=== PATIENT | male | born 1940 | race Caucasian/White ===

== ENCOUNTER → 2017-10-21 | Outpatient (CLI) | payer MEDICARE, OTHER ==
[~2017-10-21] MED LIST: AMIODARONE HCL200 MG PO; CARVEDILOL6.25 MG PO; LASIX20 MG PO; LISINOPRIL2.5 MG PO; NORCO 10-325 T1 EACH PO; PANTOPRAZOLE SO40 MG PO; POTASSIUM CHLO20 ME1 PO; SPIRONOLACTONE25 MG PO; VALIUM10 MG PO; WARFARIN SODIUM3 MG PO
--- NOTE | 2017-10-21 11:22 | Diagnostic Imaging Report ---
PROCEDURE:CHEST 2 VIEWS TECHNIQUE:PA and lateral chest INDICATION:Dyspnea; congestion COMPARISON:None. FINDINGS: Trace left pleural effusion with left lower lobe airspace opacity. Clear right lung and left upper lobe. Mild cardiomegaly. Mildly prominent central vasculature. 3-lead pacemaker/AICD of the left hemithorax; leads intact. Intact skeleton. CONCLUSION: Left lower pneumonia with adjacent small effusion. Dictated by: Mic Balderas M.D. on 10/21/2017 at 11:31 Electronically approved by: Mic Balderas M.D. on 10/21/2017 at 11:31
== END ==
LOC: RAD 10:41
PROVIDERS: ATTEND Internal Medicine Interventional Cardiology
DX: R06.00 Dyspnea, unspecified (principal); I50.9 Heart failure, unspecified
CPT/HCPCS: 71020

== ENCOUNTER 2017-12-22 09:56 | Inpatient (IN) | payer MEDICARE, OTHER ==
[~2017-12-22] VITALS: Ht 182.9 cm; Wt 77.3 kg
--- OUTSIDE RECORDS SUMMARY | 2017-12-22 10:01 | XMS REPORT ---
Author Author [facility] Address Unknown Phone Unavailable Care Team Providers Care Manager Office Name Role Phone NENA GILL Unavailable Unavailable ETHANBELKIS Mcgill Unavailable Unavailable Problems This patient has no known problems. Allergies, Adverse Reactions, Alerts This patient has no known allergies or adverse reactions. Medications This patient has no known medications. Results Test Description Test Time Test Comments Text Results Atomic Results Result Comments COMPREHENSIVE METABOLIC PANEL 2017-12-17 09:15:00 TOTAL PROTEIN (BEAKER) (test vijl=177) 6.0 gm/dL 6.0-8.3 ALBUMIN (BEAKER) (test gftr=7596) 3.5 g/dL 3.5-5.0 ALKALINE PHOSPHATASE (BEAKER) (test rewh=373) 70 U/L 40-150 BILIRUBIN TOTAL (BEAKER) (test aaud=761) 1.5 mg/dL 0.2-1.2 SODIUM (BEAKER) (test fkek=810) 134 meq/L 136-145 POTASSIUM (BEAKER) (test cmwe=253) 5.2 meq/L 3.5-5.1 CHLORIDE (BEAKER) (test jzcs=626) 101 meq/L 98-107 CO2 (BEAKER) (test lfdg=379) 22 meq/L 22-29 BLOOD UREA NITROGEN (BEAKER) (test iuxj=669) 34 mg/dL 7-21 CREATININE (BEAKER) (test wquu=157) 1.45 mg/dL 0.57-1.25 GLUCOSE RANDOM (BEAKER) (test idez=458) 118 mg/dL 70-105 CALCIUM (BEAKER) (test zgwg=777) 8.9 mg/dL 8.4-10.2 AST (SGOT) (BEAKER) (test ptsn=387) 70 U/L 5-34 ALT (SGPT) (BEAKER) (test prnt=419) 118 U/L 6-55 EGFR (BEAKER) (test cbem=6289) 48 mL/min/1.73 sq m ESTIMATED GFR IS NOT ACCURATE CREATININE CLEARANCE IN PREDICTING GLOMERULAR FILTRATION RATE. ESTIMATED GFR IS NOT APPLICABLE FOR DIALYSIS PATIENTS. [id number] 09:07:00* Test Item Value Reference Range Comments MAGNESIUM (BEAKER) (test phxl=963) 2.0 mg/dL 1.6-2.6 [id number] 08:51:00* Test Item Value Reference Range Comments PARTIAL THROMBOPLASTIN TIME (BEAKER) (test lhpx=925) 46.2 seconds 22.5-36.0 PROTHROMBIN TIME/[id number] 08:50:00* Test Item Value Reference Range Comments PROTIME (BEAKER) (test rogo=137) 39.4 seconds 11.7-14.7 INR (BEAKER) (test atka=075) 4.1 <=5.9 RECOMMENDED COUMADIN/WARFARIN INR THERAPY RANGESSTANDARD DOSE: 2.0 - 3.0 Includes: PROPHYLAXIS for venous thrombosis, systemic embolization; TREATMENT for venous thrombosis and/or pulmonary embolus.HIGH RISK: Target INR is 2.5-3.5 for patients with mechanical heart valves.CBC W/PLT COUNT & AUTO [id number] 08:38:00* Test Item Value Reference Range Comments WHITE BLOOD CELL COUNT (BEAKER) (test hzfi=316) 7.6 K/ L 3.5-10.5 RED BLOOD CELL COUNT (BEAKER) (test fxpm=106) 3.12 M/ L 4.63-6.08 HEMOGLOBIN (BEAKER) (test wcjj=048) 10.4 GM/DL 13.7-17.5 HEMATOCRIT (BEAKER) (test iztk=106) 32.6 % 40.1-51.0 MEAN CORPUSCULAR VOLUME (BEAKER) (test oibb=430) 104.5 fL 79.0-92.2 MEAN CORPUSCULAR HEMOGLOBIN (BEAKER) (test ksva=071) 33.3 pg 25.7-32.2 MEAN CORPUSCULAR HEMOGLOBIN CONC (BEAKER) (test wkor=806) 31.9 GM/DL 32.3- 36.5 RED CELL DISTRIBUTION WIDTH (BEAKER) (test twza=336) 16.4 % 11.6-14.4 PLATELET COUNT (BEAKER) (test fltw=044) 187 K/CU MM 150-450 MEAN PLATELET VOLUME (BEAKER) (test cygs=170) 10.6 fL 9.4-12.4 NUCLEATED RED BLOOD CELLS (BEAKER) (test clkx=018) 0 /100 WBC 0-0 NEUTROPHILS RELATIVE PERCENT (BEAKER) (test gkvh=983) 66 % LYMPHOCYTES RELATIVE PERCENT (BEAKER) (test lvva=875) 22 % MONOCYTES RELATIVE PERCENT (BEAKER) (test ucie=039) 11 % EOSINOPHILS RELATIVE PERCENT (BEAKER) (test bfpr=311) 0 % BASOPHILS RELATIVE PERCENT (BEAKER) (test xnau=831) 0 % NEUTROPHILS ABSOLUTE COUNT (BEAKER) (test zqrv=822) 4.98 K/ L 1.78-5.38 LYMPHOCYTES ABSOLUTE COUNT (BEAKER) (test hoar=789) 1.68 K/ L 1.32-3.57 MONOCYTES ABSOLUTE COUNT (BEAKER) (test kytd=139) 0.86 K/ L 0.30-0.82 EOSINOPHILS ABSOLUTE COUNT (BEAKER) (test phux=527) 0.02 K/ L 0.04-0.54 BASOPHILS ABSOLUTE COUNT (BEAKER) (test cizq=501) 0.02 K/ L 0.01-0.08 IMMATURE GRANULOCYTES-RELATIVE PERCENT (BEAKER) (test zora=8302) 1 % 0-1 CHEST 2 VIEWS [place] [address] Patient Name: RONN GOEMZ MR #: [id number] : 1940 Age/Sex: 76/M Req #: [id number] Adm Physician: Ordered by: BELKIS LONG MD Report #: [id number] Location: [facility] Room/Bed: Procedure: [id number] DX/ CHEST 2 VIEWS Exam Date: 10/21/17 Exam Time: 1100 REPORT STATUS: Signed PROCEDURE: CHEST 2 VIEWS TECHNIQUE: PA and lateral chest INDICATION: Dyspnea; congestion COMPARISON: None. FINDINGS: Trace left pleural effusion with left lower lobe airspace opacity. Clear right lung and left upper lobe. Mild cardiomegaly. Mildly prominent central vasculature. 3-lead pacemaker/AICD of the left hemithorax; leads intact. Intact skeleton. CONCLUSION: Left lower pneumonia with adjacent small effusion. Dictated by: Jcarlos Balderas M.D. on 10/21/2017 at 11:31 Electronically approved by: Jcarlos Balderas M.D. on 10/21/2017 at 11:31 Dictated By: JCARLOS BALDERAS MD [id number] Transcribed By: JUDAH on 10/21/17 1131 COPY TO: BELKIS LONG MD
--- OUTSIDE RECORDS SUMMARY | 2017-12-22 10:01 | XMS REPORT | Clinical Summary ---
Author Author [facility] Address Unknown Phone Unavailable Care Team Providers Care [employer] Crewmember Name Role Phone PCP Unavailable Allergies No Known Allergies Current Medications Prescription Sig. Disp. Refills Start End Date Status Date warfarin (COUMADIN) 5 MG Take 5 mg by mouth daily. Active tablet carvedilol (COREG) 25 MG Take 25 mg by mouth 2 Active tablet (two) times daily with breakfast and dinner. potassium chloride SA Take 20 mEq by mouth Active (K-DUR,KLOR-CON) 20 MEQ daily. tablet lisinopril Take 2.5 mg by mouth Active (PRINIVIL,ZESTRIL) 2.5 MG daily. tablet furosemide (LASIX) 20 MG Take 20 mg by mouth Active tablet daily. spironolactone Take 25 mg by mouth 2 Active (ALDACTONE) 25 MG tablet (two) times daily. digoxin (LANOXIN) 0.125 Take 125 mcg by mouth 12/17/19 Discontin MG tablet daily. 18 ued Active Problems Problem Noted Date Dilated cardiomyopathy ([facility]) 12/17/2017 Encounters Date Type Specialty Care Team Description 12/17/2017 [facility] Dragan Al, Dilated cardiomyopathy Encounter ([facility]) 12/17/2017 Anesthesia Gabino Mackey MD Event 12/17/2017 Orders Only General Internal Medicine 12/17/2017 Procedure Pass 12/17/2017 Surgery Dragan Al, EPS & ABLATION MD after 12/21/2016 Social History Tobacco Use Types Packs/Day Years Used Date Heavy Tobacco Smoker Smokeless Tobacco: Never Used Comments: Smokes cigars currently Alcohol Use Drinks/Week oz/Week Comments Yes 7 Shots of 4.2 Drinks [place] liquor Sex Assigned at Date Recorded Not on file Last Filed Vital Signs Vital Sign Reading Time Taken Blood Pressure 131/63 12/17/2017 8:55 PM ELECTRICAL SYSTEM SPECIALIST Pulse 91 12/17/2017 8:55 PM ELECTRICAL SYSTEM SPECIALIST Temperature 36.2 C (97.2 F) 12/17/2017 7:42 AM ELECTRICAL SYSTEM SPECIALIST Respiratory Rate 22 12/17/2017 8:55 PM ELECTRICAL SYSTEM SPECIALIST Oxygen Saturation 94% 12/17/2017 6:04 PM ELECTRICAL SYSTEM SPECIALIST Inhaled Oxygen - - Concentration Weight 89 kg (196 lb 3.2 oz) 12/17/2017 7:42 AM ELECTRICAL SYSTEM SPECIALIST Height 185.4 cm (6' 1") 12/17/2017 7:42 AM ELECTRICAL SYSTEM SPECIALIST Body Mass Index 25.89 12/17/2017 7:42 AM ELECTRICAL SYSTEM SPECIALIST Plan of Treatment Not on file Procedures Procedure Name Priority Date/Time Associated Diagnosis Comments EPS & ABLATION 12/17/2017 I42.0 3:00 PM ELECTRICAL SYSTEM SPECIALIST Case Notes (3) CASE POP6 AB NODE NOTATION Special Needs AB NODE NOTATION after 12/21/2016 Results * CARDIAC CATH REPORT - SCAN (12/21/2017 9:20 PM) * ARRYTHMIA IMPLANT REPORT - SCAN (12/21/2017 11:00 AM) * Electrocardiogram, 12-lead (12/17/2017 9:01 AM) Specimen Performing Laboratory [employer] Narrative Ventricular Rate 139 BPM Atrial Rate 131 BPM QRS Duration 148 ms Q-T Interval 332 ms QTC Calculation(Bazett) 505 ms R [place] 24 degrees T [place] 198 degrees Atrial fibrillation with rapid ventricular response with premature ventricular or aberrantly conducted complexes Left bundle branch block Abnormal ECG No previous ECGs available Confirmed by MD KIMBERLEY, IHAB ([id number]) on 12/17/2017 6:32:20 PM Procedure Note Interface, External Ris In - 12/17/2017 6:32 PM ELECTRICAL SYSTEM SPECIALIST Ventricular Rate 139 BPM Atrial Rate 131 BPM QRS Duration 148 ms Q-T Interval 332 ms QTC Calculation(Bazett) 505 ms R [place] 24 degrees T [place] 198 degrees Atrial fibrillation with rapid ventricular response with premature ventricular or aberrantly conducted complexes Left bundle branch block Abnormal ECG No previous ECGs available Confirmed by MD KIMBERLEY, IHAB ([id number]) on 12/17/2017 6:32:20 PM * CBC with platelet count + automated diff (12/17/2017 8:32 AM) Component Value Ref Range WBC 7.6 3.5 - 10.5 K/ L RBC 3.12 (L) 4.63 - 6.08 M/ L Hemoglobin 10.4 (L) 13.7 - 17.5 GM/DL Hematocrit 32.6 (L) 40.1 - 51.0 % MCV 104.5 (H) 79.0 - 92.2 fL MCH 33.3 (H) 25.7 - 32.2 pg MCHC 31.9 (L) 32.3 - 36.5 GM/DL RDW 16.4 (H) 11.6 - 14.4 % Platelets 187 150 - 450 K/CU MM MPV 10.6 9.4 - 12.4 fL nRBC 0 0 - 0 /100 WBC % Neutros 66 % % Lymphs 22 % % Monos 11 % % Eos 0 % % Baso 0 % # Neutros 4.98 1.78 - 5.38 K/ L # Lymphs 1.68 1.32 - 3.57 K/ L # Monos 0.86 (H) 0.30 - 0.82 K/ L # Eos 0.02 (L) 0.04 - 0.54 K/ L # Baso 0.02 0.01 - 0.08 K/ L Immature 1 0 - 1 % Granulocytes-Relative Specimen Performing Laboratory Blood - Line, [address] [address] * aPTT (12/17/2017 8:32 AM) Component Value Ref Range PTT 46.2 (H) 22.5 - 36.0 seconds Specimen Performing Laboratory Blood - Line, [address] [address] * Prothrombin time/INR (12/17/2017 8:32 AM) Component Value Ref Range Protime 39.4 (H) 11.7 - 14.7 seconds INR 4.1 <=5.9 Specimen Performing Laboratory Blood - Line, [address] [address] Narrative RECOMMENDED COUMADIN/WARFARIN INR THERAPY RANGES STANDARD DOSE: 2.0 - 3.0 Includes: PROPHYLAXIS for venous thrombosis, systemic embolization; TREATMENT for venous thrombosis and/or pulmonary embolus. HIGH RISK: Target INR is 2.5-3.5 for patients with mechanical heart valves. * CBC with platelet count + automated diff (12/17/2017 8:32 AM) Specimen Performing Laboratory Blood - Line, Venous Narrative The following orders were created for panel order CBC with platelet count + automated diff. Procedure Abnormality Status --------- - ------ CBC with platelet count ...[[id number]]AbnormalFinal result Please view results for these tests on the individual orders. * Magnesium (12/17/2017 8:32 AM) Component Value Ref Range Magnesium 2.0 1.6 - 2.6 mg/dL Specimen Performing Laboratory Blood - Line, Venous [address] [address] * Comprehensive metabolic panel (12/17/2017 8:32 AM) Component Value Ref Range Protein, Total 6.0 6.0 - 8.3 gm/dL Albumin 3.5 3.5 - 5.0 g/dL Alkaline Phosphatase 70 40 - 150 U/L Total Bilirubin 1.5 (H) 0.2 - 1.2 mg/dL Sodium 134 (L) 136 - 145 meq/L Potassium 5.2 (H) 3.5 - 5.1 meq/L Chloride 101 98 - 107 meq/L CO2 22 22 - 29 meq/L BUN 34 (H) 7 - 21 mg/dL Creatinine 1.45 (H) 0.57 - 1.25 mg/dL Glucose 118 (H) 70 - 105 mg/dL Calcium 8.9 8.4 - 10.2 mg/dL AST 70 (H) 5 - 34 U/L ALT 118 (H) 6 - 55 U/L EGFR 48Comment: ESTIMATED GFR IS NOT ACCURATE mL/min/1.73 sq m CREATININE CLEARANCE IN PREDICTING GLOMERULAR FILTRATION RATE. ESTIMATED GFR IS NOT APPLICABLE FOR DIALYSIS PATIENTS. Specimen Performing Laboratory Blood - Line, Venous [address] [address] after 12/21/2016
[2017-12-22] MEDS ORDERED: ASPIRIN 81 MG CHEW TAB PO ONE ×2 (10:30)
[2017-12-22 10:36] LABS: BASOPHILS % 0.2 % (0.0-1.0); HEMATOCRIT 34.1 % (38.2-49.6); HEMOGLOBIN 11.2 g/dL (14.0-18.0); LYMPHOCYTES # (AUTO) 0.8 (1.0-3.2); LYMPHOCYTES % 13.3 % (18.0-39.1); MEAN CORPUSCULAR HEMOGLOBIN 33.6 pg (28-32); MEAN CORPUSCULAR HGB CONC 32.8 g/dL (31-35); MEAN CORPUSCULAR VOLUME 102.4 fL (81-99); MONOCYTES % 16.8 % (4.4-11.3); NEUTROPHILS # (AUTO) 4.3 (2.1-6.9); NEUTROPHILS % 68.9 % (38.7-80.0); PLATELET COUNT 187 x10e3/uL (140-360); RED BLOOD COUNT 3.33 x10e6/uL (4.3-5.7); RED CELL DISTRIBUTION WIDTH 16.3 % (11.7-14.4)
--- NOTE | 2017-12-22 10:40 | Diagnostic Imaging Report ---
PROCEDURE: CHEST SINGLE (PORTABLE) COMPARISON: 10/21/2017. INDICATIONS: SOB, COUGH FINDINGS: The lungs remain well-inflated. Persistent retrocardiac opacity with loss of the left hemidiaphragmatic contour. Trace left pleural effusion. Right hemithorax is comparatively well aerated. Stable cardiomediastinal contour with left subclavian approach implantable cardiac device body and leads. Tortuosity and atherosclerotic calcification of the thoracic aorta. Normal heart size. No acute osseous abnormality. CONCLUSION: Persistent retrocardiac air space opacity dating to 10/21/2017. Differential diagnosis includes pneumonia with slow radiographic resolution, atelectasis or pleural-parenchymal mass lesion. CT scan of the chest with contrast is suggested for further evaluation. Dictated by: Torres Nieto M.D. on 12/22/2017 at 10:40 Electronically approved by: Torres Nieto M.D. on 12/22/2017 at 10:40
[2017-12-22 10:46] LABS: ALANINE AMINOTRANSFERASE 58 IU/L (0-55); ALBUMIN 3.3 g/dL (3.5-5.0); ALKALINE PHOSPHATASE 78 IU/L (40-150); ANION GAP 15.2 mmol/L (8-16); BLOOD UREA NITROGEN 24 mg/dL (7-26); BUN/CREATININE RATIO 21 (6-25); CALCIUM 8.1 mg/dL (8.4-10.2); CARBON DIOXIDE 26 mmol/L (22-29); CHLORIDE 93 mmol/L (98-107); CREATINE KINASE 74 IU/L (30-200); CREATININE, SERUM 1.17 mg/dL (0.72-1.25); EST GLOMERULAR FILTRATION RATE > 60 ML/MIN (60-); GLUCOSE 102 mg/dL (74-118); POTASSIUM 5.2 mmol/L (3.5-5.1); SODIUM 129 mmol/L (136-145)
[2017-12-22 11:10] LABS: INR 1.94; PROTHROMBIN TIME 20.8 seconds (11.9-14.5)
[2017-12-22 11:11] LABS: PARTIAL THROMBOPLASTIN TIME 43.9 seconds (23.8-35.5)
[2017-12-22] MEDS ORDERED: FUROSEMIDE INJ 10 MG/ML 4 ML VIAL IV ONE (12:15)
--- NOTE | 2017-12-22 12:48 | Diagnostic Imaging Report ---
PROCEDURE:CT CHEST WITH CONTRAST COMPARISON:Chest x-ray 12/22/17, CT chest 03/05/16. INDICATIONS:SHORTNESS OF BREATH TECHNIQUE: Axial CT images of the chest were obtained after the intravenous administration of 100 cc of nonionic contrast. Coronal and sagittal reformations were made available for review. RADIATION DOSE: Total DLP: 545.96 mGy*cm Estimated effective dose: (DLP x 0.014 x size factor) mSv FINDINGS: Lymph nodes: No enlarged axillary, supraclavicular lymph nodes. Mediastinal lymph nodes are increased in number. A precarinal lymph node measures 7 x 17 mm and is stable. Lymph nodes in the AP window measure up to 7 x 10 mm and are stable. No enlarged hilar lymph nodes. A right subcarinal lymph node measures 9 x 14 mm. Thyroid/base of neck: Unremarkable. Heart \T\ Mediastinum:Pacemaker battery pack is in the left chest wall. Pacemaker leads terminate in the right atrium, right ventricle, and coronary sinus. The heart is enlarged with moderate coronary artery atherosclerosis. The main pulmonary artery measures 3.37 m in diameter. The descending aorta measures 3.5 cm in diameter. There no filling defects and the great vessels. No pericardial effusion. The esophagus is normal. Lungs: Right lung: Diffusely hyperinflated with mild bronchial wall thickening suggestive of chronic bronchitis. There is a small amount of mucus in the proximal main bronchus. A calcified granuloma in the posterior lobe measures 5 mm. No consolidation. There is a tiny posterior layering pleural effusion. Left lung: Diffusely hyperinflated with mild bronchial wall thickening suggestive of chronic bronchitis. There is mucous in the proximal left main bronchus. There is subsegmental round atelectasis of the lower lobe. No mass or infiltrate in the upper lobe. Posterior pleural effusion measures 5 cm with fluid tracking into the major fissure. In 2016, this pleural effusion measured 4.8 cm. There is mild thickening of the parietal pleura in the posterior chest suggestive of chronicity. Pleura:No pleural-based mass or pneumothorax. Upper abdomen:Visualized portions of the liver and spleen are unremarkable. There is mild thickening of the apex of the right adrenal gland, similar to previous exam. Musculoskeletal:Mild degenerative changes of the spine consistent with age. There is a stable healed fracture deformity of the proximal sternum and stable fracture deformities of the right ninth and left seventh and eighth ribs. There are no acute fractures or focal osseous lesions. CONCLUSION: 1. Small to moderate sized left pleural effusion is likely chronic. There is round atelectasis of the left lower lobe. Right pleural effusion has almost completely resolved. 2. COPD and chronic bronchitis with mucous in the right and left main bronchi. 3. Mildly prominent mediastinal lymph nodes are likely reactive to an infectious/inflammatory process. 4. Cardiomegaly and pacer/fibrillator wires as described above. 5. Mildly prominent main pulmonary artery is suggestive of pulmonary artery hypertension. Dictated by: Ade Chakraborty M.D. on 12/22/2017 at 12:46 Electronically approved by: Ade Chakraborty M.D. on 12/22/2017 at 12:46
--- OUTSIDE RECORDS SUMMARY | 2017-12-22 12:59 | XMS REPORT | Clinical Summary ---
Author Author TON[facility] Address Unknown Phone Unavailable Care Team Providers Care Half Backer Name Role Phone PCP Unavailable Allergies No [...] Active Problems Problem Noted Date Dilated cardiomyopathy ([facility]) 12/17/2017 Encounters Date Type Specialty Care Team Description 12/17/2017 [facility] Dragan Al, Dilated cardiomyopathy Encounter ([facility]) 12/17/2017 Anesthesia Gabino Mackey MD Event 12/17/2017 Orders Only General Internal Medicine 12/17/2017 Procedure Pass 12/17/2017 Surgery Dragan Al, EPS & ABLATION MD after 12/21/2016 Social History Tobacco Use Types Packs/Day Years Used Date Heavy Tobacco Smoker Smokeless Tobacco: Never Used Comments: Smokes cigars currently Alcohol Use Drinks/Week oz/Week Comments Yes 7 Shots of 4.2 Drinks [place] liquor Sex Assigned at Date Recorded Not on file Last Filed Vital Signs Vital Sign Reading Time Taken Blood Pressure 131/63 12/17/2017 8:55 PM OB/GYN PHYSICIAN Pulse 91 12/17/2017 8:55 PM OB/GYN PHYSICIAN Temperature 36.2 C (97.2 F) 12/17/2017 7:42 AM OB/GYN PHYSICIAN Respiratory Rate 22 12/17/2017 8:55 PM OB/GYN PHYSICIAN Oxygen Saturation 94% 12/17/2017 6:04 PM OB/GYN PHYSICIAN Inhaled Oxygen - - Concentration Weight 89 kg (196 lb 3.2 oz) 12/17/2017 7:42 AM OB/GYN PHYSICIAN Height 185.4 cm (6' 1") 12/17/2017 7:42 AM OB/GYN PHYSICIAN Body Mass Index 25.89 12/17/2017 7:42 AM OB/GYN PHYSICIAN Plan of Treatment Not on file Procedures Procedure Name Priority Date/Time Associated Diagnosis Comments EPS & ABLATION 12/17/2017 I42.0 3:00 PM OB/GYN PHYSICIAN Case Notes (3) CASE POP6 AB NODE NOTATION Special Needs AB NODE NOTATION after 12/21/2016 Results * CARDIAC CATH REPORT - SCAN (12/21/2017 9:20 PM) * ARRYTHMIA IMPLANT REPORT - SCAN (12/21/2017 11:00 AM) * Electrocardiogram, 12-lead (12/17/2017 9:01 AM) Specimen Performing Laboratory [employer] Narrative Ventricular Rate 139 BPM Atrial Rate 131 BPM QRS Duration 148 ms Q-T Interval 332 ms QTC Calculation(Bazett) 505 ms R [place] 24 degrees T [place] 198 degrees Atrial fibrillation with rapid ventricular response with premature ventricular or aberrantly conducted complexes Left bundle branch block Abnormal ECG No previous ECGs available Confirmed by MD KIMBERLEY, IHAB ([id number]) on 12/17/2017 6:32:20 PM Procedure Note Interface, External Ris In - 12/17/2017 6:32 PM OB/GYN PHYSICIAN Ventricular Rate 139 BPM Atrial Rate 131 BPM QRS Duration 148 ms Q-T Interval 332 ms QTC Calculation(Bazett) 505 ms R [place] 24 degrees T [place] 198 degrees Atrial fibrillation with rapid ventricular response with premature ventricular or aberrantly conducted complexes Left bundle branch block Abnormal ECG No previous ECGs available Confirmed by MD KIMBERLEY, IHAB ([id number]) on 12/17/2017 6:32:20 PM * CBC with [...] Granulocytes-Relative Specimen Performing Laboratory Blood - Line, [address] [address] * aPTT (12/17/2017 8:32 AM) Component Value Ref Range PTT 46.2 (H) 22.5 - 36.0 seconds Specimen Performing Laboratory Blood - Line, [address] [address] * Prothrombin time/INR (12/17/2017 8:32 AM) Component Value Ref Range Protime 39.4 (H) 11.7 - 14.7 seconds INR 4.1 <=5.9 Specimen Performing Laboratory Blood - Line, [address] [address] Narrative RECOMMENDED COUMADIN/WARFARIN INR THERAPY RANGES STANDARD [...] --------- - ------ CBC with platelet count ...[[id number]]AbnormalFinal result Please view results for these tests on the individual orders. * Magnesium (12/17/2017 8:32 AM) Component Value Ref Range Magnesium 2.0 1.6 - 2.6 mg/dL Specimen Performing Laboratory Blood - Line, Venous [address] [address] * Comprehensive metabolic panel (12/17/2017 8:32 AM) [...] Specimen Performing Laboratory Blood - Line, Venous [address] [address] after 12/21/2016
[2017-12-22] MEDS ORDERED: SODIUM CHLORIDE 452MG TAB PO SCH (13:00)
[2017-12-22 14:12] VITALS: BP 101/57
[2017-12-22 14:17] VITALS: BP 101/57
[2017-12-22 14:18] VITALS: BP 101/57
[2017-12-22] MEDS ORDERED: SODIUM CHLORIDE 0.9% 50ML 50 ML ONE (14:59)
[2017-12-22] MEDS ORDERED: IOPAMIDOL 370 MG/ML 200 ML INFUS..BTL INJ ONE (14:59)
[2017-12-22 16:29] VITALS: BP 94/66
[2017-12-22] MEDS ORDERED: LEVOFLOXACIN 500MG/D5W 100ML 100 ML IV ONE (17:30)
[2017-12-22] MEDS ORDERED: CARVEDILOL 3.125 MG TAB PO SCH (18:00)
[2017-12-22] MEDS ORDERED: LORAZEPAM 1 MG TAB PO PRN (18:30)
[2017-12-22] MEDS ORDERED: DIPHENOXYLATE/ATROPINE TAB PO PRN (18:30)
--- NOTE | 2017-12-22 18:36 | Consultation ---
DATE OF CONSULTATION: December 22, 2017 CARDIOLOGY CONSULTATION INDICATION: Shortness of breath. HISTORY OF PRESENT ILLNESS: Mr. Ryan is a 76-year-old gentleman with a history of excessive alcohol consumption, atrial fibrillation, nonischemic cardiomyopathy, as well as congestive heart failure. He came to my office for persistent shortness of breath and hypotension following an AV node ablation procedure. He was syncopal in the office. He did not have cardiac arrest. His defibrillator did not shock him, however, he was very weak and could not move from the laying down position. Paramedics were called. He was transferred to the emergency room at [facility] where he was diagnosed with congestive heart failure with pulmonary edema on his CT scan and chest x-ray along with infiltrates and large amounts of mucus in his bronchial tubes via CT. PAST MEDICAL HISTORY: As listed above. SOCIAL HISTORY: Patient denies drinking recently, although he has had a long history of excessive alcohol consumption for most of his life. FAMILY HISTORY: Noncontributory. REVIEW OF SYSTEMS: Negative except as dictated in the history of present illness. PHYSICAL EXAMINATION VITALS: Afebrile, heart rate 78, blood pressure 98/70, O2 sat is 94% on 2 L nasal cannula. CARDIOVASCULAR: Regular rhythm. S3 gallop. Systolic murmur. LUNGS: Decreased breath sounds. Crackles and rhonchi bilaterally in both lung cervantes. ABDOMEN: Distended. Free fluid is present. 2+ edema. Electrocardiogram shows BiV paced rhythm. CT scan, chest x-ray, labs were reviewed. Hyponatremia is noted. ASSESSMENT 1. Agejx-nr-dkustpn systolic heart failure. 2. Atrial fibrillation. 3. Excessive alcohol consumption. RECOMMENDATIONS: Aggressive diuresis with intravenous furosemide as well as oral Aldactone, continuation of low-dose beta darleen and lisinopril as tolerated for relative hypotension with acute heart failure. Echocardiogram to evaluate for ejection fraction as well as AICD check will be performed. He does have some evidence of infiltrates with recent history of upper respiratory tract infection and relative hypotension. Coverage for pneumonia will be provided with vancomycin and Levaquin. Overall, prognosis is guarded. I thank Dr. Haile for this consultation. Job#: [id number]
[2017-12-22] MEDS ORDERED: VANCOMYCIN 1GM/NS 250 ML 250 ML IV SCH ×2 (18:45→23:47)
[2017-12-22 18:50] LABS: INR 1.84
[2017-12-22 19:00] VITALS: BP 96/75
[2017-12-22 19:05] LABS: CREATINE KINASE MB 1.9 ng/mL (0-5.0)
--- NOTE | 2017-12-22 19:05 | History and Physical ---
This patient comes in with shortness of breath and orthopnea. HISTORY OF PRESENT ILLNESS: Mr. Ryan is a 76-year-old gentleman with a history of dyspnea which is increased in intensity, and increased to orthopnea. He came with shortness of breath and foot swelling and was diagnosed with congestive heart failure and hyponatremia, and was admitted to the hospital. PAST MEDICAL HISTORY: History of hypertension, history of atrial fibrillation, history of congestive heart failure, history of myocardial infarction, history of recent ablation by Dr. Al and history of GI bleed in the past, history of alcoholism, history of chronic fatigue syndrome, history of alcoholic dementia. PAST SURGICAL HISTORY: Recent surgery include a pacemaker in 2016 and recent cardiac ablations. HOME MEDICATIONS: Vitamin B 100 mg, pantoprazole, at bedtime, potassium chloride 20 mEq, Aldactone 25 mEq, lisinopril 2.5, furosemide 20, Carvedilol 25, warfarin 5, digoxin 125, Wellbutrin 150. REVIEW OF SYSTEMS: Negative for chest pain. Positive for shortness of breath. Negative for nausea and vomiting, diarrhea, constipation, rectal pain, hematochezia. Positive for orthopnea and PND. Positive for lower extremity swelling and also positive for anxiety. SOCIAL HISTORY: No ETOH at this time, but history of ETOH and history of smoking too. PHYSICAL EXAMINATION GENERAL: The patient is alert and oriented x3, slightly tachypneic, breathing about 25-30 respirations per minute using accessory muscles for respiration, otherwise alert. HEENT: Normocephalic, atraumatic. Pupils react to light and accommodation. There is no icterus present. NECK: No JVD present. No meningeal signs. No thyromegaly or carotid bruits. CVS: S1 and S2. Regular rate and rhythm. RESPIRATORY: Positive for crackles in the lower base. ABDOMEN: Soft and nontender, nondistended. EXTREMITIES: Trace edema right now. SKIN: Warm. BACK: Positive for tenderness. NEUROLOGIC: Alert and oriented x3. Does have some loss of short term memory. LABORATORY DATA: Initial white count is 6.18, hemoglobin 11.2, hematocrit 34.1, platelet count 187,000. Chemistry: Sodium 129, potassium 5.2, CO2 of 26, BUN 24 and creatinine 1.07, calcium 8.1. ALT 58. BNP was 1596. Albumin 3.3. ASSESSMENT: Congestive heart failure. PLAN: 1. The last echo that was seen was back in 2016 with ejection fraction of 35% and since then the patient has had ICD placement and also ablation. 2. Will go ahead and repeat an echo unless Dr. Nova has already done it. Will take him off his Aldactone and his potassium supplements for hypokalemia. 3. 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 Dr. Nova has been consulted. 4. Repeat a thyroid, TSH and T4 and T3, and also check his PT and INR. Apparently, the patient is still taking warfarin. 5. Further recommendations depending on clinical course. Will continue to monitor the patient and if INR is therapeutic will continue the same if not. 6. Will consult cardiology and further recommendations depending on clinical course. Job#: [id number]
[2017-12-22 19:33] LABS: FREE THYROXINE INDEX 2.7298 (1.4-3.8); THYROID STIMULATING HORMONE 0.589 uIU/mL (0.350-4.940)
[2017-12-22] MEDS ORDERED: SODIUM CHLORIDE 0.9% 250ML 250 ML ONE (20:55)
[2017-12-22] MEDS: FUROSEMIDE INJ 10 MG/ML 4 ML VIAL IV SCH (21:02)
[2017-12-22] MEDS: LEVOFLOXACIN 500MG/D5W 100ML 100 ML IV SCH (21:02)
[2017-12-22 22:42] LABS: ANION GAP 17.1 mmol/L (8-16); BLOOD UREA NITROGEN 24 mg/dL (7-26); BUN/CREATININE RATIO 21 (6-25); CALCIUM 8.7 mg/dL (8.4-10.2); CARBON DIOXIDE 29 mmol/L (22-29); CHLORIDE 88 mmol/L (98-107); CREATININE, SERUM 1.12 mg/dL (0.72-1.25); EST GLOMERULAR FILTRATION RATE > 60 ML/MIN (60-); GLUCOSE 96 mg/dL (74-118); POTASSIUM 4.1 mmol/L (3.5-5.1); SODIUM 130 mmol/L (136-145)
[2017-12-23] VITALS (7 sets, daily range): BP systolic 92–113; BP diastolic 58–96
[2017-12-23] MEDS: IPRATROPIUM BROMIDE 0.02% 2.5 ML NEB NEB SCH (00:10)
[2017-12-23 06:34] LABS: BASOPHILS % 0.3 % (0.0-1.0); HEMATOCRIT 36.9 % (38.2-49.6); HEMOGLOBIN 12.1 g/dL (14.0-18.0); LYMPHOCYTES # (AUTO) 1.2 (1.0-3.2); LYMPHOCYTES % 18.2 % (18.0-39.1); MEAN CORPUSCULAR HEMOGLOBIN 33.3 pg (28-32); MEAN CORPUSCULAR HGB CONC 32.8 g/dL (31-35); MEAN CORPUSCULAR VOLUME 101.7 fL (81-99); MONOCYTES # (AUTO) 1.1 (0.2-0.8); MONOCYTES % 17.5 % (4.4-11.3); NEUTROPHILS # (AUTO) 4.1 (2.1-6.9); NEUTROPHILS % 63.4 % (38.7-80.0); PLATELET COUNT 163 x10e3/uL (140-360); RED BLOOD COUNT 3.63 x10e6/uL (4.3-5.7); RED CELL DISTRIBUTION WIDTH 16.2 % (11.7-14.4)
--- NOTE | 2017-12-23 06:43 | Diagnostic Imaging Report ---
EXAMINATION: CHEST SINGLE (PORTABLE) INDICATION: CHF, dyspnea COMPARISON: 12/22/2017 FINDINGS: TUBES and LINES: The pacemaker is intact. LUNGS: Lungs are not well inflated. There are bibasilar atelectasis. There is perihilar interstital opacities, consistent with interstitial edema. PLEURA: Small left pleural effusion. HEART AND MEDIASTINUM: Cardiac size is moderately enlarged. There are atherosclerotic calcifications within the aorta. BONES AND SOFT TISSUES: No acute osseous lesion. Soft tissues are unremarkable. UPPER ABDOMEN: No free air under the diaphragm. IMPRESSION: Recurrent cardiogenic pulmonary edema, slightly worsening Signed by: Dr. Kishor De La Vega M.D. on 12/23/2017 6:39 AM
[2017-12-23 06:54] LABS: ALANINE AMINOTRANSFERASE 53 IU/L (0-55); ALBUMIN 3.2 g/dL (3.5-5.0); ALBUMIN/GLOBULIN RATIO 0.9 (0.8-2.0); ALKALINE PHOSPHATASE 93 IU/L (40-150); ANION GAP 18.9 mmol/L (8-16); BLOOD UREA NITROGEN 21 mg/dL (7-26); BUN/CREATININE RATIO 19 (6-25); CALCIUM 8.8 mg/dL (8.4-10.2); CARBON DIOXIDE 29 mmol/L (22-29); CHLORIDE 90 mmol/L (98-107); CREATINE KINASE 80 IU/L (30-200); CREATININE, SERUM 1.08 mg/dL (0.72-1.25); EST GLOMERULAR FILTRATION RATE > 60 ML/MIN (60-); GLUCOSE 70 mg/dL (74-118); POTASSIUM 3.9 mmol/L (3.5-5.1); SODIUM 134 mmol/L (136-145)
[2017-12-23] MEDS ORDERED: SPIRONOLACTONE 25 MG TAB PO SCH (09:00)
[2017-12-23] MEDS ORDERED: CARVEDILOL 3.125 MG TAB PO SCH (09:00)
[2017-12-23] MEDS ORDERED: NON-FORMULARY MEDICATION (Carvedilol 6.25 MG) PO SCH (09:00)
[2017-12-23] MEDS: SPIRONOLACTONE 25 MG TAB PO SCH (09:28)
[2017-12-23] MEDS: DIGOXIN 0.125 MG TAB PO SCH (09:28)
[2017-12-23] MEDS: FUROSEMIDE INJ 10 MG/ML 4 ML VIAL IV SCH ×2 (09:28→20:54)
[2017-12-23] MEDS: PANTOPRAZOLE SOD 40 MG TABEC PO SCH (09:29)
[2017-12-23] MEDS: BUPROPION HCL 150 MG TABCR PO SCH (09:29)
[2017-12-23] MEDS: LISINOPRIL 2.5 MG TAB PO SCH (09:42)
[2017-12-23] MEDS: CARVEDILOL 12.5 MG TAB PO SCH ×2 (09:42→17:00)
[2017-12-23] MEDS: VANCOMYCIN 1GM/NS 250 ML 250 ML IV SCH ×2 (09:42→22:26)
[2017-12-23] MEDS ORDERED: WARFARIN SOD 3 MG TAB PO SCH (17:00)
--- NOTE | 2017-12-23 17:04 | Progress Note ---
DATE: December 23, 2017 CARDIOLOGY PROGRESS NOTE SUBJECTIVE: The patient denies chest pain. He reports his shortness of breath is better. OBJECTIVE VITAL SIGNS: Temperature 97.5 degrees, pulse 98, respiratory rate 20, blood pressure 97/63, oxygen saturation 95% on 2 liters nasal cannula, negative 2.5 liters. GENERAL: Awake, alert and in no acute distress. LUNGS: Decreased breath sounds at the bases with crackles bilaterally. CARDIOVASCULAR: Normal rate, regular rhythm. No murmurs. Normal S1 and S2. ABDOMEN: Soft and nontender. EXTREMITIES: No edema. CARDIAC MEDICATIONS: 1. Carvedilol 25 mg p.o. b.i.d. 2. Lisinopril 2.5 mg p.o. daily. 3. Spironolactone 25 mg p.o. daily. 4. Digoxin 0.125 mg p.o. q.a.m. 5. Furosemide 40 mg IV q.12 h. 6. Warfarin 5 mg p.o. daily. LABORATORY DATA: WBC 6.5, hemoglobin 12.1, hematocrit 36.9, platelets 163,000, sodium 134, potassium 3.9, chloride 90, CO2 of 29, BUN 21, creatinine 1.08, troponin 0.066. BNP 1256. TELEMETRY: V paced. IMPRESSION 1. [id number] systolic heart failure. 2. Atrial fibrillation, status post AV node ablation. 3. Coronary artery disease with prior myocardial infarction. 4. Hypertension. 5. Excessive alcohol use. RECOMMENDATIONS: 1. Continue diuresis. Creatinine is stable. 2. Replete electrolytes. Hyponatremia is improving. 3. INR is subtherapeutic. Note, increase to 5 mg daily. Monitor INR during admission. 4. Continue current cardiac medications otherwise. Thank you for this consult. We will continue to follow. Job#: [id number]
[2017-12-23] MEDS: LEVOFLOXACIN 500MG/D5W 100ML 100 ML IV SCH (17:47)
[2017-12-23] MEDS: WARFARIN SOD 5 MG TAB PO SCH (17:47)
[2017-12-23] MEDS: GUAIFENESIN 200 MG/10 ML UDC PO PRN (20:54)
[2017-12-23 21:11] LABS: ANION GAP 15.7 mmol/L (8-16); BLOOD UREA NITROGEN 23 mg/dL (7-26); BUN/CREATININE RATIO 20 (6-25); CALCIUM 8.3 mg/dL (8.4-10.2); CARBON DIOXIDE 31 mmol/L (22-29); CHLORIDE 90 mmol/L (98-107); CREATININE, SERUM 1.17 mg/dL (0.72-1.25); EST GLOMERULAR FILTRATION RATE > 60 ML/MIN (60-); GLUCOSE 100 mg/dL (74-118); POTASSIUM 3.7 mmol/L (3.5-5.1); SODIUM 133 mmol/L (136-145)
[2017-12-24] VITALS (17 sets, daily range): BP systolic 70–116; BP diastolic 50–71
[2017-12-24 07:37] LABS: ANION GAP 15.4 mmol/L (8-16); BLOOD UREA NITROGEN 21 mg/dL (7-26); BUN/CREATININE RATIO 20 (6-25); CALCIUM 8.4 mg/dL (8.4-10.2); CARBON DIOXIDE 32 mmol/L (22-29); CHLORIDE 91 mmol/L (98-107); CREATININE, SERUM 1.06 mg/dL (0.72-1.25); EST GLOMERULAR FILTRATION RATE > 60 ML/MIN (60-); GLUCOSE 106 mg/dL (74-118); POTASSIUM 3.4 mmol/L (3.5-5.1); SODIUM 135 mmol/L (136-145)
[2017-12-24] MEDS: IPRATROPIUM BROMIDE 0.02% 2.5 ML NEB NEB SCH ×3 (07:45→22:48)
[2017-12-24] MEDS: LISINOPRIL 2.5 MG TAB PO SCH (09:45)
[2017-12-24] MEDS: SPIRONOLACTONE 25 MG TAB PO SCH (09:45)
[2017-12-24] MEDS: PANTOPRAZOLE SOD 40 MG TABEC PO SCH (09:45)
[2017-12-24] MEDS: CARVEDILOL 12.5 MG TAB PO SCH (09:45)
[2017-12-24] MEDS: DIGOXIN 0.125 MG TAB PO SCH (09:45)
[2017-12-24] MEDS: BUPROPION HCL 150 MG TABCR PO SCH (09:45)
[2017-12-24] MEDS: FUROSEMIDE INJ 10 MG/ML 4 ML VIAL IV SCH ×2 (10:00→23:03)
[2017-12-24] MEDS: VANCOMYCIN 1GM/NS 250 ML 250 ML IV SCH ×2 (11:00→23:03)
[2017-12-24] MEDS: GUAIFENESIN 200 MG/10 ML UDC PO PRN (13:05)
[2017-12-24] MEDS: WARFARIN SOD 5 MG TAB PO SCH (17:30)
[2017-12-24] MEDS ORDERED: SODIUM CHLORIDE 0.9% 250ML 250 ML ONE (18:00)
[2017-12-24] MEDS: LEVOFLOXACIN 500MG/D5W 100ML 100 ML IV SCH (18:28)
--- NOTE | 2017-12-24 18:30 | Progress Note ---
DATE: December 24, 2017 CARDIOLOGY PROGRESS NOTE SUBJECTIVE: Patient denies chest pain or shortness of breath. He continues to feel weak. OBJECTIVE VITAL SIGNS: Temperature 98.9 degrees, pulse 90, respiratory rate 22, blood pressure 116/68, oxygen saturation 93% on 3 liters nasal cannula. GENERAL: Awake, alert, in no acute distress. LUNGS: Decreased breath sounds at the bases with crackles bilaterally. CARDIOVASCULAR: Normal rate, regular rhythm. No murmur. Normal S1 and S2. ABDOMEN: Soft, nontender. EXTREMITIES: No edema. CARDIAC MEDICATIONS 1. Furosemide 40 mg IV q.12 h. 2. Spironolactone 25 mg p.o. daily. 3. Digoxin 0.125 mg p.o. q.a.m. 4. Carvedilol 25 mg p.o. b.i.d. 5. Lisinopril 2.5 mg p.o. daily. 6. Warfarin 5 mg p.o. daily. LABS: Sodium 135, potassium 3.4, chloride 91, CO2 32, BUN 21, creatinine 1.06. TELEMETRY: V-paced. IMPRESSION 1. Gsytm-zp-wbhblkw systolic heart failure. 2. Atrial fibrillation status post atrioventricular node ablation. 3. Coronary artery disease with a prior myocardial infarction. 4. Hypertension. 5. Excessive alcohol use. RECOMMENDATIONS: 1. Continue diuresis. Patient's creatinine is stable, and hyponatremia is improving. 2. Replete electrolytes. Repeat INR as warfarin was increased to 5 mg daily. Monitor INR daily. 3. Given patient's development of hypotension today, we will discontinue carvedilol, hold lisinopril. Thank you for this consult. We will continue to follow. Job#: [id number] [place]
[2017-12-24 19:41] LABS: INR 1.61
[2017-12-24] MEDS: ACETAMINOPHEN 325 MG TAB PO PRN (21:21)
[2017-12-25] VITALS (9 sets, daily range): BP systolic 90–113; BP diastolic 68–82
[2017-12-25] MEDS: GUAIFENESIN 200 MG/10 ML UDC PO PRN (00:05)
[2017-12-25] MEDS ORDERED: SODIUM CHLORIDE 0.9% 250ML 250 ML ONE (00:20)
[2017-12-25 06:39] LABS: ANION GAP 14.7 mmol/L (8-16); BLOOD UREA NITROGEN 21 mg/dL (7-26); BUN/CREATININE RATIO 19 (6-25); CALCIUM 7.9 mg/dL (8.4-10.2); CARBON DIOXIDE 33 mmol/L (22-29); CHLORIDE 92 mmol/L (98-107); CREATININE, SERUM 1.08 mg/dL (0.72-1.25); EST GLOMERULAR FILTRATION RATE > 60 ML/MIN (60-); GLUCOSE 113 mg/dL (74-118); POTASSIUM 3.7 mmol/L (3.5-5.1); SODIUM 136 mmol/L (136-145)
[2017-12-25] MEDS: IPRATROPIUM BROMIDE 0.02% 2.5 ML NEB NEB SCH ×2 (07:00→15:00)
[2017-12-25] MEDS: LISINOPRIL 2.5 MG TAB PO SCH (09:00)
[2017-12-25] MEDS: FUROSEMIDE INJ 10 MG/ML 4 ML VIAL IV SCH ×3 (09:00→21:45)
[2017-12-25] MEDS: BUPROPION HCL 150 MG TABCR PO SCH (09:28)
[2017-12-25] MEDS: DIGOXIN 0.125 MG TAB PO SCH (09:28)
[2017-12-25] MEDS: PANTOPRAZOLE SOD 40 MG TABEC PO SCH (09:28)
[2017-12-25] MEDS: SPIRONOLACTONE 25 MG TAB PO SCH (09:28)
[2017-12-25] MEDS: VANCOMYCIN 1GM/NS 250 ML 250 ML IV SCH ×2 (11:43→21:45)
[2017-12-25 12:33] LABS: INR 1.62; PROTHROMBIN TIME 18.1 seconds (11.9-14.5)
[2017-12-25] MEDS ORDERED: POTASSIUM CHLORIDE 20 MEQ TAB CR PO ONE (13:00)
--- NOTE | 2017-12-25 14:42 | Progress Note ---
DATE: December 25, 2017 CARDIOLOGY PROGRESS NOTE SUBJECTIVE: The patient denies chest pain or shortness of breath or lightheadedness. He is waiting for PT evaluation as he wants to sit up. OBJECTIVE VITALS: Temperature 97.8 degrees, pulse 98, respiratory rate 21, blood pressure 101/76, oxygen saturation 94% on 2 L nasal cannula. GENERAL: Elderly man in no acute distress. Awake and alert. LUNGS: Decreased breath sounds at the bases. Crackles bilaterally. CARDIOVASCULAR: Normal rate and regular rhythm. No murmur. Normal S1 and S2. ABDOMEN: Soft and nontender. EXTREMITIES: No edema. CARDIAC MEDICATIONS 1. Spironolactone 25 mg p.o. daily. 2. Digoxin 0.125 mg p.o. q.a.m. 3. Warfarin 5 mg p.o. daily. 4. Furosemide 40 mg IV q.12 h. 5. Lisinopril 2.5 mg p.o. daily. LABS: Sodium 136, potassium 3.7, chloride 92, CO2 33, BUN 21, creatinine 1.08. Telemetry is V-paced. IMPRESSION 1. Gmgrv-ey-wpfwfwa systolic heart failure. 2. Atrial fibrillation: Status post atrioventricular node ablation. 3. Coronary artery disease with prior myocardial infarction. 4. Hypertension. 5. Excessive alcohol use. RECOMMENDATIONS: Continue diuresis. The patient's creatinine has been stable. Replete electrolytes. Monitor INR daily. Place on lower dose carvedilol with hold parameters. Will instruct nursing staff to continue giving diuretics. Thank you for this consult. Will continue to follow. Job#: [id number]
[2017-12-25] MEDS: CARVEDILOL 3.125 MG TAB PO SCH (17:35)
[2017-12-25] MEDS: LEVOFLOXACIN 500MG/D5W 100ML 100 ML IV SCH (17:35)
[2017-12-25] MEDS: WARFARIN SOD 5 MG TAB PO SCH (17:35)
[2017-12-26 00:36] VITALS: BP 103/72
[2017-12-26 04:27] VITALS: BP 106/78
[2017-12-26] MEDS: IPRATROPIUM BROMIDE 0.02% 2.5 ML NEB NEB SCH ×3 (07:00→23:08)
[2017-12-26 07:19] LABS: INR 1.77; PROTHROMBIN TIME 19.4 seconds (11.9-14.5)
[2017-12-26 07:23] LABS: BASOPHILS % 0.2 % (0.0-1.0); EOSINOPHILS % 0.2 % (0.0-6.0); HEMATOCRIT 39.9 % (38.2-49.6); HEMOGLOBIN 13.6 g/dL (14.0-18.0); LYMPHOCYTES # (AUTO) 2.1 (1.0-3.2); LYMPHOCYTES % 34.1 % (18.0-39.1); MEAN CORPUSCULAR HEMOGLOBIN 33.4 pg (28-32); MEAN CORPUSCULAR HGB CONC 34.1 g/dL (31-35); MONOCYTES # (AUTO) 0.7 (0.2-0.8); MONOCYTES % 11.4 % (4.4-11.3); NEUTROPHILS # (AUTO) 3.3 (2.1-6.9); NEUTROPHILS % 53.4 % (38.7-80.0); PLATELET COUNT 161 x10e3/uL (140-360); RED BLOOD COUNT 4.07 x10e6/uL (4.3-5.7); RED CELL DISTRIBUTION WIDTH 15.7 % (11.7-14.4)
[2017-12-26 07:27] LABS: ALANINE AMINOTRANSFERASE 47 IU/L (0-55); ALBUMIN/GLOBULIN RATIO 0.8 (0.8-2.0); ALKALINE PHOSPHATASE 94 IU/L (40-150); ANION GAP 16.6 mmol/L (8-16); BLOOD UREA NITROGEN 20 mg/dL (7-26); BUN/CREATININE RATIO 20 (6-25); CALCIUM 8.7 mg/dL (8.4-10.2); CARBON DIOXIDE 31 mmol/L (22-29); CHLORIDE 92 mmol/L (98-107); CREATININE, SERUM 0.99 mg/dL (0.72-1.25); EST GLOMERULAR FILTRATION RATE > 60 ML/MIN (60-); GLUCOSE 112 mg/dL (74-118); POTASSIUM 3.6 mmol/L (3.5-5.1); SODIUM 136 mmol/L (136-145)
[2017-12-26 08:09] VITALS: BP 108/76
[2017-12-26] MEDS: CARVEDILOL 3.125 MG TAB PO SCH ×2 (08:09→17:00)
[2017-12-26] MEDS: BUPROPION HCL 150 MG TABCR PO SCH (09:00)
[2017-12-26] MEDS: PANTOPRAZOLE SOD 40 MG TABEC PO SCH (09:00)
[2017-12-26] MEDS: FUROSEMIDE INJ 10 MG/ML 4 ML VIAL IV SCH ×2 (10:00→22:41)
[2017-12-26] MEDS: SPIRONOLACTONE 25 MG TAB PO SCH (10:00)
[2017-12-26] MEDS: LISINOPRIL 2.5 MG TAB PO SCH (10:00)
[2017-12-26] MEDS: DIGOXIN 0.125 MG TAB PO SCH (10:00)
[2017-12-26] MEDS: VANCOMYCIN 1GM/NS 250 ML 250 ML IV SCH ×2 (11:00→23:10)
--- NOTE | 2017-12-26 12:45 | Diagnostic Imaging Report ---
EXAMINATION: CHEST SINGLE (PORTABLE) 12/26/2017 11:42 AM COMPARISON: 12/23/2017 INDICATION: CHF. DISCUSSION: LINES: Left chest wall biventricular pacemaker with leads in unchanged positions. LUNGS: Mild perihilar opacities, unchanged. PLEURA: Small left pleural effusion, unchanged. No pneumothorax. HEART AND MEDIASTINUM: The cardiomediastinal silhouette is unremarkable. BONES AND SOFT TISSUES: No acute osseous lesion. The soft tissues are normal. IMPRESSION: Interstitial edema and small left pleural effusion, unchanged Familia Motley MD Signed by: Dr. Familia Motley M.D. on 12/26/2017 12:41 PM
[2017-12-26 15:17] LABS: BAND NEUTROPHILS % (MANUAL) 1 %; LYMPHOCYTES % (MANUAL) 29 % (19-48); MONOCYTES % (MANUAL) 13 % (3.4-9.0); NEUTROPHILS % (MANUAL) 52 % (40-74)
[2017-12-26 15:18] LABS: PLATELET ESTIMATE ADEQUATE; PLATELET MORPHOLOGY COMMENT NORMAL; RBC MORPHOLOGY COMMENT NORMAL
--- NOTE | 2017-12-26 16:09 | Progress Note ---
DATE: December 26, 2017 CARDIOLOGY PROGRESS NOTE SUBJECTIVE: Patient denies chest pain or shortness of breath. He reports he walked with physical therapy yesterday approximately 20 feet. OBJECTIVE VITALS: Temperature 97.9 degrees, pulse 90, respiratory rate 15, blood pressure 101/76, oxygen saturation 94% on 3 L nasal cannula. GENERAL: Elderly man, in no acute distress, awake and alert. LUNGS: Decreased breath sounds at the bases. Crackles bilaterally. CARDIOVASCULAR: Normal rate, regular rhythm. No murmur. Normal S1 and S2. ABDOMEN: Soft and nontender. EXTREMITIES: No edema. CARDIAC MEDICATIONS 1. Carvedilol 3.125 mg p.o. b.i.d. 2. Furosemide 40 mg IV q.12 hours. 3. Warfarin 5 mg p.o. daily. 4. Spironolactone 25 mg p.o. daily. 5. Digoxin 0.125 mg p.o. q.a.m. 6. Lisinopril 2.5 mg p.o. daily. LABS: WBC 6.15, hemoglobin 13.6, hematocrit 39.9, platelets 161. Sodium 136, potassium 3.6, chloride 92, CO2 of 31, BUN 20, creatinine 1.99. Telemetry, V-paced. IMPRESSION 1. Geasq-yj-pvehygu systolic heart failure. 2. Atrial fibrillation, status post atrioventricular node ablation. 3. Coronary artery disease with prior myocardial infarction. 4. Hypertension. 5. Excessive alcohol use. RECOMMENDATIONS: Increase diuretics. Patient's creatinine has been stable. Replete electrolytes. Monitor INR daily. Continue current cardiac medications otherwise. Thank you for this consult. We will continue to follow. Job#: [id number] [place]
[2017-12-26] MEDS: WARFARIN SOD 5 MG TAB PO SCH (17:45)
[2017-12-26 18:25] VITALS: BP 81/60
[2017-12-26] MEDS: LEVOFLOXACIN 500MG/D5W 100ML 100 ML IV SCH (18:25)
[2017-12-26 19:27] VITALS: BP 92/58
[2017-12-26 22:42] VITALS: BP 100/78
[2017-12-27] VITALS (7 sets, daily range): BP systolic 90–107; BP diastolic 66–89
[2017-12-27] MEDS: VANCOMYCIN 1GM/NS 250 ML 250 ML IV SCH (05:20)
[2017-12-27 06:34] LABS: INR 2.14; PROTHROMBIN TIME 22.5 seconds (11.9-14.5)
[2017-12-27 06:42] LABS: ANION GAP 16.7 mmol/L (8-16); BLOOD UREA NITROGEN 21 mg/dL (7-26); BUN/CREATININE RATIO 18 (6-25); CALCIUM 8.8 mg/dL (8.4-10.2); CARBON DIOXIDE 32 mmol/L (22-29); CHLORIDE 91 mmol/L (98-107); CREATININE, SERUM 1.17 mg/dL (0.72-1.25); EST GLOMERULAR FILTRATION RATE > 60 ML/MIN (60-); GLUCOSE 110 mg/dL (74-118); POTASSIUM 3.7 mmol/L (3.5-5.1); SODIUM 136 mmol/L (136-145)
[2017-12-27] MEDS: IPRATROPIUM BROMIDE 0.02% 2.5 ML NEB NEB SCH ×3 (07:00→23:00)
[2017-12-27] MEDS: CARVEDILOL 3.125 MG TAB PO SCH ×2 (08:18→17:35)
[2017-12-27] MEDS: FUROSEMIDE INJ 10 MG/ML 4 ML VIAL IV SCH ×2 (08:33→20:31)
[2017-12-27] MEDS: SPIRONOLACTONE 25 MG TAB PO SCH (08:33)
[2017-12-27] MEDS: BUPROPION HCL 150 MG TABCR PO SCH (08:33)
[2017-12-27] MEDS: LISINOPRIL 2.5 MG TAB PO SCH (08:33)
[2017-12-27] MEDS: DIGOXIN 0.125 MG TAB PO SCH (08:33)
[2017-12-27] MEDS: PANTOPRAZOLE SOD 40 MG TABEC PO SCH (08:33)
[2017-12-27] MEDS: WARFARIN SOD 5 MG TAB PO SCH (17:00)
[2017-12-27] MEDS ORDERED: SODIUM CHLORIDE 0.9% 250ML 250 ML ONE (17:18)
[2017-12-27] MEDS: LEVOFLOXACIN 500MG/D5W 100ML 100 ML IV SCH (17:35)
--- NOTE | 2017-12-27 21:18 | Progress Note ---
DATE: December 27, 2017 CARDIOLOGY PROGRESS NOTE SUBJECTIVE: The patient denies chest pain or shortness of breath. OBJECTIVE VITAL SIGNS: Temperature 98.4 degrees, pulse 90, respiratory rate 19, blood pressure 107/89, oxygen saturation 99% on 2 liters nasal cannula. negative 900 mL. GENERAL: Awake, alert, elderly man in no acute distress. LUNGS: Decreased breath sounds at the bases. Crackles bilaterally. CARDIOVASCULAR: Normal rate, regular rhythm. No murmur. Normal S1 and S2. ABDOMEN: Soft and nontender. EXTREMITIES: No edema. CARDIAC MEDICATIONS 1. Carvedilol 3.125 mg p.o. b.i.d. 2. Warfarin 5 mg p.o. daily. 3. Spironolactone 25 mg p.o. daily. 4. Digoxin 0.125 mg p.o. q.a.m. 5. Lisinopril 2.5 mg p.o. daily. 6. Lasix 40 mg IV q.12 h. LABS: Sodium 136, potassium 3.7, chloride 91, CO2 of 32, BUN 21, creatinine 1.17. TELEMETRY: V paced. IMPRESSION 1. Escfp-fl-hcnymqk systolic heart failure. 2. Atrial fibrillation, status post atrioventricular node ablation. 3. Coronary artery disease with prior myocardial infarction. 4. Hypertension. 5. Excessive alcohol use. RECOMMENDATIONS: Continue diuretics. We will increase to t.i.d. dosing to augment diuresis. The patient's creatinine is relatively stable. Replete electrolytes. Monitor INR. It is now therapeutic. However, the patient continues to be hypoxic with minimal exertion, increase diuretics. The patient's creatinine has been relatively stable. Replete electrolytes. The patient's INR is now therapeutic. Continue current cardiac medications. Physical therapy as tolerated. Monitor on telemetry. Thank you for this consult. We will continue to follow. Job#: [id number]
[2017-12-28] VITALS: BP 105/76
[2017-12-28] MEDS: ACETAMINOPHEN 325 MG TAB PO PRN ×2 (02:30→23:43)
[2017-12-28 04:00] VITALS: BP 102/73
[2017-12-28] MEDS: IPRATROPIUM BROMIDE 0.02% 2.5 ML NEB NEB SCH ×3 (07:00→23:00)
[2017-12-28 07:15] LABS: ANION GAP 15.5 mmol/L (8-16); BLOOD UREA NITROGEN 20 mg/dL (7-26); BUN/CREATININE RATIO 20 (6-25); CALCIUM 8.7 mg/dL (8.4-10.2); CARBON DIOXIDE 28 mmol/L (22-29); CHLORIDE 94 mmol/L (98-107); CREATININE, SERUM 0.98 mg/dL (0.72-1.25); EST GLOMERULAR FILTRATION RATE > 60 ML/MIN (60-); GLUCOSE 110 mg/dL (74-118); POTASSIUM 3.5 mmol/L (3.5-5.1); SODIUM 134 mmol/L (136-145)
[2017-12-28] MEDS: SPIRONOLACTONE 25 MG TAB PO SCH (08:55)
[2017-12-28] MEDS: CARVEDILOL 3.125 MG TAB PO SCH ×2 (08:55→17:00)
[2017-12-28] MEDS: DIGOXIN 0.125 MG TAB PO SCH (08:55)
[2017-12-28] MEDS: FUROSEMIDE INJ 10 MG/ML 4 ML VIAL IV SCH ×3 (08:55→21:00)
[2017-12-28] MEDS: LISINOPRIL 2.5 MG TAB PO SCH (08:56)
[2017-12-28] MEDS: PANTOPRAZOLE SOD 40 MG TABEC PO SCH (08:56)
[2017-12-28] MEDS: BUPROPION HCL 150 MG TABCR PO SCH (08:56)
[2017-12-28 09:07] VITALS: BP 102/80
[2017-12-28 16:00] VITALS: BP 94/68
[2017-12-28] MEDS: WARFARIN SOD 5 MG TAB PO SCH (17:23)
[2017-12-28] MEDS: LEVOFLOXACIN 500MG/D5W 100ML 100 ML IV SCH (17:23)
[2017-12-28 20:00] VITALS: BP 88/68
--- NOTE | 2017-12-28 20:23 | Progress Note ---
DATE: December 28, 2017 CARDIOLOGY PROGRESS NOTE SUBJECTIVE: The patient denies chest pain. He reports shortness of breath is better. He walked with physical therapy to the nurses' station and back, which is better than prior to admission. OBJECTIVE VITAL SIGNS: Temperature 96.7 degrees, pulse 90, respiratory rate 20, blood pressure 102/80, oxygen saturation 94% on 2 liters nasal cannula, 1.2 liters. GENERAL: Awake, alert, elderly man in no acute distress. LUNGS: Decreased breath sounds at the bases. Crackles bilaterally. CARDIOVASCULAR: Normal rate, regular rhythm. No murmur. Normal S1 and S2. ABDOMEN: Soft and nontender. EXTREMITIES: No edema. CARDIAC MEDICATIONS 1. Carvedilol 3.125 mg p.o. b.i.d. 2. Warfarin 5 mg p.o. daily. 3. Furosemide 40 mg IV t.i.d. 4. Spironolactone 25 mg p.o. daily. 5. Digoxin 0.125 mg p.o. q.a.m. 6. Lisinopril 2.5 mg p.o. daily. LABS: Sodium 134, potassium 3.5, chloride 94, CO2 of 28, BUN 20, creatinine 0.98. TELEMETRY: V-paced. IMPRESSION 1. Olfqn-hc-zdofdtf systolic heart failure. 2. Atrial fibrillation, status post atrioventricular node ablation. 3. Coronary artery disease with prior myocardial infarction. 4. Hypertension. 5. Excessive alcohol use. RECOMMENDATIONS: Continue diuresis. The patient continues to be ____ negative with stable creatinine. Replete electrolytes. Monitor INR. Continue current cardiac medications otherwise. Physical therapy as tolerated. Monitor on telemetry. Thank you for this consult. We will continue to follow. Job#: [id number]
[2017-12-28 21:42] VITALS: BP 94/68
[2017-12-29] VITALS: BP 103/66
[2017-12-29 04:00] VITALS: BP 106/70
[2017-12-29] MEDS: IPRATROPIUM BROMIDE 0.02% 2.5 ML NEB NEB SCH ×2 (07:00→13:18)
[2017-12-29 07:15] VITALS: BP 99/73
[2017-12-29 07:40] LABS: INR 3.57; PROTHROMBIN TIME 33.5 seconds (11.9-14.5)
[2017-12-29 07:45] LABS: ANION GAP 16.3 mmol/L (8-16); BLOOD UREA NITROGEN 22 mg/dL (7-26); BUN/CREATININE RATIO 22 (6-25); CALCIUM 8.8 mg/dL (8.4-10.2); CARBON DIOXIDE 26 mmol/L (22-29); CHLORIDE 94 mmol/L (98-107); EST GLOMERULAR FILTRATION RATE > 60 ML/MIN (60-); GLUCOSE 107 mg/dL (74-118); POTASSIUM 3.3 mmol/L (3.5-5.1); SODIUM 133 mmol/L (136-145)
[2017-12-29 08:12] VITALS: BP 99/73
[2017-12-29] MEDS: FUROSEMIDE INJ 10 MG/ML 4 ML VIAL IV SCH ×2 (09:00→15:00)
[2017-12-29] MEDS: SPIRONOLACTONE 25 MG TAB PO SCH (09:00)
[2017-12-29] MEDS: DIGOXIN 0.125 MG TAB PO SCH (09:09)
[2017-12-29] MEDS: BUPROPION HCL 150 MG TABCR PO SCH (09:09)
[2017-12-29] MEDS: CARVEDILOL 3.125 MG TAB PO SCH ×2 (09:09→17:11)
[2017-12-29] MEDS: PANTOPRAZOLE SOD 40 MG TABEC PO SCH (09:09)
[2017-12-29] MEDS: LISINOPRIL 2.5 MG TAB PO SCH (09:09)
[2017-12-29 11:34] VITALS: BP 121/87
[2017-12-29 15:33] VITALS: BP 100/70
--- NOTE | 2017-12-29 16:16 | Progress Note ---
DATE: December 29, 2017 SUBJECTIVE: The patient denies chest pain or shortness of breath. OBJECTIVE VITAL SIGNS: Temperature 97.2 degrees, pulse 98, respiratory rate 18, blood pressure 121/87, oxygen saturation 97% on 2 liters nasal cannula. GENERAL: Awake, alert, elderly man in no acute distress. LUNGS: Decreased breath sounds at the bases, otherwise clear to auscultation. CARDIOVASCULAR: Normal rate, regular rhythm. No murmur. Normal S1 and S2. ABDOMEN: Soft and nontender. EXTREMITIES: No edema. CARDIAC MEDICATIONS 1. Carvedilol 3.125 mg p.o. b.i.d. 2. Furosemide 40 mg IV t.i.d. 3. Spironolactone 25 mg p.o. daily. 4. Digoxin 0.125 mg p.o. q.a.m. 5. Lisinopril 2.5 mg p.o. daily. LABS: Sodium 133, potassium 3.3, chloride 94, CO2 of 26, BUN 22, creatinine 1. TELEMETRY: V-paced. IMPRESSION 1. Bvevw-eg-knwxtex systolic heart failure. 2. Atrial fibrillation, status post atrioventricular node ablation. 3. Coronary artery disease with prior myocardial infarction. 4. Hypertension. 5. Excessive alcohol use. RECOMMENDATIONS: Continue diuresis. We will reemphasize to the nursing staff that he must receive his diuretics unless his blood pressure is less than 90 systolic. Replete electrolytes. INR is supratherapeutic. Stop warfarin. Resume at lower dose one INR is back in therapeutic range. Continue current cardiac medications otherwise. Physical therapy as tolerated. Continue monitoring the patient on telemetry. Thank you for this consult. We will continue to follow. Job#: [id number]
[2017-12-29] MEDS: LEVOFLOXACIN 500MG/D5W 100ML 100 ML IV SCH (17:11)
== END 2017-12-29 18:09 | DRG 291 ==
LOC: ER 09:56 → ERHOLD 12:55 → IMCU 13:32 → MED/SURG3 12-27 14:22
PROVIDERS: ADMIT Family Medicine; ATTEND Family Medicine
DX: I11.0 Hypertensive heart disease with heart failure (principal); J18.9 Pneumonia, unspecified organism; E86.0 Dehydration; E22.2 Syndrome of inappropriate secretion of antidiuretic hormone; I48.91 Unspecified atrial fibrillation; F10.27 Alcohol dependence with alcohol-induced persisting dementia; E87.1 Hypo-osmolality and hyponatremia; I25.10 Atherosclerotic heart disease of native coronary artery without angina pectoris; F10.20 Alcohol dependence, uncomplicated; I50.23 Acute on chronic systolic (congestive) heart failure; Y90.9 Presence of alcohol in blood, level not specified; I25.2 Old myocardial infarction; R53.82 Chronic fatigue, unspecified; E87.6 Hypokalemia; R79.1 Abnormal coagulation profile
CPT/HCPCS: 36415; 71045; 71260; 80048; 80053; 80202; 82550; 82553; 83880; 84132; 84436; 84443; 84479; 84484; 85025; 85610; 85730; 93005; 93306; 94640; 97139; 99285; J1940; J1956; J3370; J7050; Q9967